=== PATIENT | female | born 1935 | race African-American/Black ===

== ENCOUNTER 2017-04-22 15:26 | Inpatient (IN) | payer MEDICARE, MEDICAID ==
[~2017-04-22] VITALS: Ht 152.4 cm; Wt 61.7 kg
[~2017-04-22 15:26] MED LIST: ALLOPURINOL300 M1 ORAL; ATORVASTATIN CA40 MG ORAL; COZAAR50 MG ORAL; HYZAAR 100-12.1 EACH ORAL; METOPROLOL SUCC50 MG ORAL; NORVASC5 MG ORAL
--- NOTE | 2017-04-22 16:31 | Diagnostic Imaging Report ---
Indication: Headache Technique: Contiguous 5 mm thick transaxial imaging of the head obtained in a Siemens Sensation [address] scanner. Soft tissue and bone windows generated. Automatic Exposure Control was utilized. Total Dose length Product (DLP): 1354.[address] Dose Index Volume (CTDIvol): 70.38 mGy Comparison: none Findings: There is mild prominence of the ventricles, basal cisterns, and cerebral sulci consistent with atrophy. Mild, nonspecific, white matter hypoattenuation is noted throughout the brain consistent with chronic small vessel disease. There is no midline shift, edema, acute hemorrhage, mass effect, or abnormal extra-axial fluid collections. Bones and extra osseous soft tissues are unremarkable. Impression: No acute intracranial bleed, mass effect or edema. Mild atrophy of the brain. Nonspecific white matter hypoattenuation probably due to chronic small vessel disease. The CT scanner at [facility] is accredited by the [employer] and the scans are performed using dose optimization techniques as appropriate to a performed exam including Automatic Exposure control.
[2017-04-22 16:55] LABS: BASOPHILS % (AUTO) 1.8 % (0.0-2.0); EOSINOPHILS % (AUTO) 3.6 % (0.0-3.0); HEMATOCRIT 34.3 % (37.0-47.0); HEMOGLOBIN 11.4 G/DL (12.0-16.0); LYMPHOCYTES % (AUTO) 41.2 % (20.0-45.0); MEAN CORPUSCULAR VOLUME 90 FL (80-99); MONOCYTES % (AUTO) 4.8 % (1.0-10.0); NEUTROPHILS % (AUTO) 48.5 % (45.0-75.0); PLATELET COUNT 215 K/UL (150-450); RED BLOOD COUNT 3.81 M/UL (4.20-5.40); RED CELL DISTRIBUTION WIDTH 13.9 % (11.6-14.8); WHITE BLOOD COUNT 5.1 K/UL (4.8-10.8)
--- NOTE | 2017-04-22 16:58 | Diagnostic Imaging Report ---
Indication: Dyspnea Comparison: 11/13/2015 A single view chest radiograph was obtained. Findings: No definite infiltrate or pulmonary vascular congestion identified. A pacemaker is noted on the left. Sternotomy noted. There is no change The heart is enlarged. The aorta is mildly enlarged consistent with atherosclerotic vascular disease. The bones are osteopenic. Impression: No acute disease .
[2017-04-22 16:59] VITALS: BP 160/58
[2017-04-22 17:11] LABS: ANION GAP 10 mmol/L (5-15); BLOOD UREA NITROGEN 14 mg/dL (7-18); CARBON DIOXIDE 26 MMOL/L (21-32); CHLORIDE 105 MMOL/L (98-107); CREATININE 1.4 MG/DL (0.55-1.30); POTASSIUM 3.8 MMOL/L (3.5-5.1); SODIUM 141 MMOL/L (136-145)
[2017-04-22 17:25] LABS: ALANINE AMINOTRANSFERASE 12 U/L (12-78); ALBUMIN 3.8 G/DL (3.4-5.0); ALBUMIN/GLOBULIN RATIO 0.9 (1.0-2.7); ALKALINE PHOSPHATASE 117 U/L (46-116); ASPARTATE AMINO TRANSFERASE 16 U/L (15-37); BILIRUBIN,TOTAL 0.3 MG/DL (0.2-1.0); CKMB 1.1 NG/ML (0.0-3.6); CREATINE KINASE 96 U/L (26-308)
[2017-04-22 20:00] VITALS: BP 118/64
[2017-04-22] MEDS: Nitroglycerin 2% oint pkt TOPIC SCH (22:02)
[2017-04-22] MEDS: Aspirin Baby 81mg ORAL SCH (22:09)
[2017-04-22] MEDS: Atorvastatin 20mg tab ORAL SCH (22:09)
[2017-04-22] MEDS: Heparin 5000 units/ml inj SUBQ SCH (22:11)
--- NOTE | 2017-04-22 22:30 | Emergency Room Report ---
History of Present Illness General Chief Complaint: Hypertension Source: Patient, Medical Record Present Illness HPI This is a 82-year-old female who presented after increased hypertension and generalized weakness. Patient reported having increased headache as well as a change in her speech. Patient been poorly compliant with her medications for blood pressure patient reports having gradual onset of headache. She denies any visual changes. She denied any numbness or weakness to her extremities. Patient had not been vomiting or having any flank pain. Allergies: Coded Allergies: No Known Allergies (Verified Allergy, Unknown, 04/26/09) Patient History Past Medical History: see triage record Reviewed Nursing Documentation: PMH: Agreed, PSxH: Agreed Nursing Documentation-PMH Hx Cardiac Problems: Yes - CABG; Stents; High Cholesterol Hx Hypertension: Yes Hx Pacemaker: Yes - Left upper chest Hx Cancer: No Hx Gastrointestinal Problems: No Hx Neurological Problems: No Review of Systems All Other Systems: negative except mentioned in HPI Physical Exam Vital Signs Date Time Temp Pulse Resp B/P (MAP) Pulse Ox O2 Delivery O2 Flow Rate FiO2 04/22/17 15:49 97.9 71 24 172/106 96 Room Air 97.9 Sp02 EP Interpretation: reviewed, normal General Appearance: normal inspection, well appearing, no apparent distress, alert, GCS 15 Head: atraumatic ENT: normal ENT inspection, hearing grossly normal, normal voice Neck: normal inspection, full range of motion, supple, no bony tend Respiratory: normal inspection, lungs clear, normal breath sounds, no respiratory distress, no retraction, no wheezing Cardiovascular #1: regular rate, rhythm, no edema Gastrointestinal: normal inspection, normal bowel sounds, non tender, soft, no guarding, no hernia Genitourinary: no CVA tenderness Musculoskeletal: normal inspection, back normal, normal range of motion Neurologic: normal inspection, alert, responsive, speech normal Psychiatric: normal inspection, judgement/insight normal, mood/affect normal Skin: normal inspection, normal color, no rash Medical Decision Making Diagnostic Impression: Primary Impression: Hypertensive crisis, unspecified ER Course Patient presented for generalized weakness and uncontrolled hypertension. Differential diagnosis included but was not limited to CVA, hypertensive crisis , alcohol intoxication, among others. Patient was given clonidine with improvement in BP. She was noted to have some difficulty with speech. Ct of head showed no acute CVA or hemorrhage.Dr. Jey Rivera was contacted for inpatient managment due to primary care physician. Labs Test 04/22/17 16:37 2/13/18 06:40 Prothrombin Time 10.2 SEC (9.30-11.50) Prothromb Time International Ratio 1.0 (0.9-1.1) Activated Partial Thromboplast Time 29 SEC (23-33) Total Creatine Kinase 96 U/L (26-308) Creatine Kinase MB 1.1 NG/ML (0.0-3.6) Creatine Kinase MB Relative Index 1.1 Pro-B-Type Natriuretic Peptide 899 pg/mL (0-125) White Blood Count 4.7 K/UL (4.8-10.8) Red Blood Count 3.48 M/UL (4.20-5.40) Hemoglobin 10.1 G/DL (12.0-16.0) Hematocrit 31.4 % (37.0-47.0) Mean Corpuscular Volume 90 FL (80-99) Mean Corpuscular Hemoglobin 29.1 PG (27.0-31.0) Mean Corpuscular Hemoglobin Concent 32.3 G/DL (32.0-36.0) Red Cell Distribution Width 14.4 % (11.6-14.8) Platelet Count 182 K/UL (150-450) Mean Platelet Volume 8.4 FL (6.5-10.1) Neutrophils (%) (Auto) % (45.0-75.0) Lymphocytes (%) (Auto) % (20.0-45.0) Monocytes (%) (Auto) % (1.0-10.0) Eosinophils (%) (Auto) % (0.0-3.0) Basophils (%) (Auto) % (0.0-2.0) Differential Total Cells Counted 100 Neutrophils % (Manual) 36 % (45-75) Lymphocytes % (Manual) 57 % (20-45) Monocytes % (Manual) 3 % (1-10) Eosinophils % (Manual) 3 % (0-3) Basophils % (Manual) 1 % (0-2) Band Neutrophils 0 % (0-8) Platelet Estimate Adequate Platelet Morphology Normal Red Blood Cell Morphology Normal Sodium Level 142 MMOL/L (136-145) Potassium Level 4.5 MMOL/L (3.5-5.1) Chloride Level 109 MMOL/L (98-107) Carbon Dioxide Level 26 MMOL/L (21-32) Anion Gap 7 mmol/L (5-15) Blood Urea Nitrogen 15 mg/dL (7-18) Creatinine 1.3 MG/DL (0.55-1.30) Estimat Glomerular Filtration Rate mL/min (>60) Glucose Level 85 MG/DL (74-106) Calcium Level 9.6 MG/DL (8.5-10.1) Magnesium Level 1.8 MG/DL (1.8-2.4) Total Bilirubin 0.3 MG/DL (0.2-1.0) Aspartate Amino Transf (AST/SGOT) 13 U/L (15-37) Alanine Aminotransferase (ALT/SGPT) 11 U/L (12-78) Alkaline Phosphatase 88 U/L (46-116) Troponin I 0.000 ng/mL (0.000-0.056) Total Protein 7.1 G/DL (6.4-8.2) Albumin 3.2 G/DL (3.4-5.0) Globulin 3.9 g/dL Albumin/Globulin Ratio 0.8 (1.0-2.7) Triglycerides Level 96 MG/DL (30-150) Cholesterol Level 191 MG/DL (< 200) LDL Cholesterol 112 mg/dL (<100) HDL Cholesterol 58 MG/DL (40-60) Cholesterol/HDL Ratio 3.3 (3.3-4.4) Thyroid Stimulating Hormone (TSH) 4.977 uiU/mL (0.358-3.740) EKG Diagnostic Results Rate: normal Rhythm: NSR ST Segments: no acute changes Last Vital Signs Date Time Temp Pulse Resp B/P (MAP) Pulse Ox O2 Delivery O2 Flow Rate FiO2 04/22/17 22:02 118/64 04/22/17 20:00 97.6 60 18 96 Room Air Status: unchanged Disposition: ADMITTED INPATIENT Condition: Serious Referrals: JEY RIVERA (PCP) Christopher Siddiqui Apr 22, 2017 22:30
[2017-04-22] MEDS: NS w/KCl 20mEq 1,000 ML IV SCH (22:38)
[2017-04-23] VITALS: BP 116/73
--- NOTE | 2017-04-23 03:00 | History and Physical Report ---
DATE OF ADMISSION: 04/22/2017 CONSULTING PHYSICIAN: Jey Rivera M.D. REQUESTING PHYSICIAN: Mayur Gutierrez M.D. REASON FOR EVALUATION: Malignant hypertension in the setting of possible acute cerebrovascular accident. HISTORY OF PRESENT ILLNESS: This is an 82-year-old female with ischemic cardiomyopathy, permanent pacemaker, and malignant range hypertension. She is status post coronary artery bypass graft surgery and prior stents and has a permanent pacemaker. She has been my patient for several years, but has periods of noncompliance with medical followup. She came into the emergency room today with generalized weakness and headache with some changes in her speech. She states that she has been poorly compliant with medications for her blood pressure and she was noted in the emergency room to have a malignant blood pressure of 172/106. The patient denies any visual disturbance, weakness, or numbness, but has had gradual onset of a severe headache and some difficulty with her speech. PAST MEDICAL HISTORY: Coronary artery disease, CABG, coronary stents, hyperlipidemia, permanent pacemaker, hypertension, paroxysmal atrial ectopy, history of gastric ulcer and gastrointestinal bleeding, hyperuricemia, history of gout, conduction system disease with pacemaker, and COPD. ALLERGIES: None. SOCIAL HISTORY: Positive for smoking. No alcohol or substance abuse. FAMILY HISTORY: Noncontributory. REVIEW OF SYSTEMS: No fevers. No recent upper respiratory infection. Note her most recent echocardiogram has revealed normal ejection fraction with concentric hypertrophy and diastolic dysfunction. There is no prior history of stroke. She has been on anti-lipid drugs. Antiplatelet therapy has been held at times when she had this GI bleeding, but was resumed in the recent past. There is no recent change in bowel habits. No history of dysuria or frequency. No history of diabetes mellitus. The patient's permanent pacemaker was interrogated within the last six months and noted to be functioning appropriately with adequate battery life. PHYSICAL EXAMINATION: VITAL SIGNS: As noted above. HEENT: Conjunctivae pink. Sclerae are anicteric. Arcus senilis. Oropharynx clear. Mucous membranes moist. NECK: Supple. No bruits. Jugular venous pressure normal. LUNGS: Clear. Pacemaker pocket left chest wall. BREASTS: Without masses. CARDIAC: Regular rhythm and rate. Normal S1 and S2 with a fourth heart sound. ABDOMEN: Soft. EXTREMITIES: No edema. NEUROLOGIC: Speech is somewhat slurred, but coherent. No edema. DIAGNOSTIC DATA: EKG with paced rhythm. IMPRESSION: 1. Hypertensive urgency. 2. Transient ischemic attack and possible acute cerebrovascular accident. 3. Ischemic and hypertensive cardiomyopathy. 4. History of hyperlipidemia. 5. Permanent pacemaker. PLAN: 1. Cardiac monitoring. 2. Antiplatelet therapy. 3. Stepwise titration of antihypertensives. 4. Avoid precipitous drop in blood pressure in the setting of acute cerebrovascular insult. 5. Continue anti-lipid drugs. 6. Observe for bleeding complications with anti-platelet therapy in view of prior history of GI bleed. 7. Consider CT scan with contrast, cannot do MRI in this setting. Jey Rivera M.D. DR: AMOS JOB#: [id number] CC: BRANDY
[2017-04-23 04:00] VITALS: BP 150/75
[2017-04-23] MEDS: Nitroglycerin 2% oint pkt TOPIC SCH ×3 (06:07→18:13)
[2017-04-23 07:18] LABS: HEMATOCRIT 31.4 % (37.0-47.0); HEMOGLOBIN 10.1 G/DL (12.0-16.0); MEAN CORPUSCULAR VOLUME 90 FL (80-99); PLATELET COUNT 182 K/UL (150-450); RED BLOOD COUNT 3.48 M/UL (4.20-5.40); RED CELL DISTRIBUTION WIDTH 14.4 % (11.6-14.8); WHITE BLOOD COUNT 4.7 K/UL (4.8-10.8)
[2017-04-23 07:43] LABS: ALANINE AMINOTRANSFERASE 11 U/L (12-78); ALBUMIN 3.2 G/DL (3.4-5.0); ALBUMIN/GLOBULIN RATIO 0.8 (1.0-2.7); ALKALINE PHOSPHATASE 88 U/L (46-116); ANION GAP 7 mmol/L (5-15); ASPARTATE AMINO TRANSFERASE 13 U/L (15-37); BILIRUBIN,TOTAL 0.3 MG/DL (0.2-1.0); BLOOD UREA NITROGEN 15 mg/dL (7-18); CALCIUM 9.6 MG/DL (8.5-10.1); CARBON DIOXIDE 26 MMOL/L (21-32); CHLORIDE 109 MMOL/L (98-107); CHOLESTEROL 191 MG/DL (< 200); CREATININE 1.3 MG/DL (0.55-1.30); HDL CHOLESTEROL 58 MG/DL (40-60); POTASSIUM 4.5 MMOL/L (3.5-5.1); SODIUM 142 MMOL/L (136-145); TRIGLYCERIDES 96 MG/DL (30-150)
[2017-04-23 08:00] VITALS: BP 137/75
[2017-04-23] MEDS: Metoprolol Succinate XL 50mg tab ORAL SCH (09:07)
[2017-04-23] MEDS: Aspirin Baby 81mg ORAL SCH (09:07)
[2017-04-23] MEDS: Losartan 50mg tab ORAL SCH (09:08)
[2017-04-23] MEDS: Heparin 5000 units/ml inj SUBQ SCH ×2 (09:09→20:48)
[2017-04-23 12:00] VITALS: BP 127/74
[2017-04-23] MEDS: NS w/KCl 20mEq 1,000 ML IV SCH ×2 (12:16→22:17)
[2017-04-23 15:53] VITALS: BP 130/62
--- NOTE | 2017-04-23 16:58 | Cardiology Report ---
APPROVED REPORT EKG Measurement Heart [id number] HI [id number] Left ventricular hypertrophy with repolarization abnormality atril pacing ventricular sensing Abnormal ECG
[2017-04-23 20:00] VITALS: BP 157/70
[2017-04-23] MEDS: Atorvastatin 20mg tab ORAL SCH (20:47)
[2017-04-24] VITALS (8 sets, daily range): BP systolic 137–190; BP diastolic 55–82
[2017-04-24] MEDS: HydrALAZINE 25mg tab ORAL PRN ×2 (03:37→20:44)
--- NOTE | 2017-04-24 05:45 | Progress Note ---
DATE: 04/23/2017 CARDIOLOGY PROGRESS NOTE SUBJECTIVE: The patient has some difficulty with word finding. She denies any weakness. She is concerned about her blood pressure. She had a headache with the nitro paste. OBJECTIVE: VITAL SIGNS: Blood pressure 130/62 to 167/70, heart rate 60, respiratory rate 20, afebrile, and oxygen saturation 95% on room air. HEENT: Oropharynx clear. NECK: Supple. LUNGS: Clear. CARDIAC: Regular. ABDOMEN: Soft. EXTREMITIES: No edema. ASSESSMENT: 1. Malignant hypertension, improved. 2. Coronary artery disease with prior CABG. 3. Stable angina. 4. Nitrate headache. 5. Possible acute cerebrovascular accident. 6. Mild hypothyroidism with elevated TSH. 7. History of GI bleeding. 8. Permanent pacemaker. PLAN: 1. Continue anti-platelet therapy. 2. Anti-lipid therapy. 3. Titrate antihypertensive therapy. 4. PT, OT, and ST evaluation. 5. Thyroid supplement. 6. Repeat CT scan of the brain with contrast, cannot do MRI due to pacemaker. Jey Rivera M.D. DR: MARLENE JOB#: [id number] CC:
--- NOTE | 2017-04-24 07:58 | General Progress Note ---
Assessment/Plan Problem List: (1) Hyperkalemia ICD Codes: E87.5 - Hyperkalemia SNOMED: 06329309 (2) Hyponatremia ICD Codes: E87.1 - Hypo-osmolality and hyponatremia SNOMED: 26183363 (3) Hypertension ICD Codes: I10 - Essential (primary) hypertension SNOMED: 50622297 Status: stable, progressing Assessment/Plan titrate bp rx antiplt rx pt/ot Subjective ROS Limited/Unobtainable: No Constitutional: Reports: malaise, weakness HEENT: Reports: no symptoms Cardiovascular: Reports: no symptoms Respiratory: Reports: no symptoms Gastrointestinal/Abdominal: Reports: no symptoms Genitourinary: Reports: no symptoms Neurologic/Psychiatric: Reports: no symptoms Endocrine: Reports: no symptoms Hematologic/Lymphatic: Reports: no symptoms Allergies: Coded Allergies: No Known Allergies (Verified Allergy, Unknown, 04/26/09) All Systems: reviewed and negative except above Subjective no events. w/o complaints. BP still running high. "I feel fine." Objective Last 24 Hour Vital Signs Date Time Temp Pulse Resp B/P (MAP) Pulse Ox O2 Delivery O2 Flow Rate FiO2 04/24/17 04:45 60 161/70 04/24/17 04:00 97.0 60 20 180/82 100 Room Air 04/24/17 04:00 60 04/24/17 03:37 180/82 04/24/17 00:00 97.7 61 20 153/81 96 Room Air 04/24/17 00:00 60 04/23/17 20:00 98.1 61 20 157/70 95 Room Air 04/23/17 20:00 65 04/23/17 18:13 130/62 04/23/17 16:00 120 04/23/17 15:53 97.9 61 18 130/62 98 Room Air 04/23/17 12:16 127/74 04/23/17 12:00 98.7 59 18 127/74 97 Room Air 04/23/17 12:00 77 04/23/17 12:00 120 04/23/17 09:08 137/75 04/23/17 09:07 60 137/68 04/23/17 09:07 60 137/75 04/23/17 08:00 120 04/23/17 08:00 97.8 60 18 137/75 97 Room Air Intake and Output 04/23/17 04/24/17 19:00 07:00 Intake Total 75 ml 879 ml Balance 75 ml 879 ml IV Total 75 ml 879 ml # Voids 3 2 # Bowel Movements 1 Height (Feet): 5 Height (Inches): 0.00 Weight (Pounds): 136 General Appearance: WD/WN, alert Neck: supple Cardiovascular: regular rhythm Respiratory/Chest: chest wall non-tender, lungs clear, normal breath sounds, no respiratory distress Abdomen: normal bowel sounds, non tender, soft, no organomegaly Edema: no edema noted Arm (L), no edema noted Arm (R), no edema noted Leg (L), no edema noted Leg (R), no edema noted Pedal (L), no edema noted Pedal (R), no edema noted 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
[2017-04-24] MEDS: Metoprolol Succinate XL 50mg tab ORAL SCH (08:17)
[2017-04-24] MEDS: Losartan 50mg tab ORAL SCH (08:17)
[2017-04-24] MEDS: Aspirin Baby 81mg ORAL SCH (08:18)
[2017-04-24] MEDS: Heparin 5000 units/ml inj SUBQ SCH ×2 (08:19→20:49)
[2017-04-24] MEDS: NS w/KCl 20mEq 1,000 ML IV SCH (18:42)
[2017-04-24] MEDS: Atorvastatin 20mg tab ORAL SCH (20:43)
[2017-04-25] VITALS: BP 134/56
[2017-04-25] MEDS: NS w/KCl 20mEq 1,000 ML IV SCH (03:43)
[2017-04-25 04:00] VITALS: BP 126/59
[2017-04-25 08:00] VITALS: BP 145/58
[2017-04-25 09:04] VITALS: BP 145/57
[2017-04-25] MEDS: Losartan 50mg tab ORAL SCH (09:04)
[2017-04-25] MEDS: Metoprolol Succinate XL 50mg tab ORAL SCH (09:04)
[2017-04-25] MEDS: Aspirin Baby 81mg ORAL SCH (09:04)
[2017-04-25] MEDS: Heparin 5000 units/ml inj SUBQ SCH (09:06)
[2017-04-25] MEDS ORDERED: SYNTHROID50 MCG ORAL (10:47)
[2017-04-25] MEDS ORDERED: NORVASC10 MG ORAL (10:47)
[2017-04-25] MEDS ORDERED: COZAAR50 MG ORAL (10:47)
--- NOTE | 2017-04-25 19:47 | Progress Note ---
DATE: 04/25/2017 CARDIOLOGY PROGRESS NOTE SUBJECTIVE: The patient has no weakness. Speech is fluent. Blood pressure parameters improved. No chest pain. Monitor, paced rhythm. OBJECTIVE: VITAL SIGNS: Blood pressure 126/59, pulse 60, and respirations 20. LUNGS: Clear. CARDIAC: Regular. Normal S1, S2 with a fourth heart sound. ABDOMEN: Soft. EXTREMITIES: No edema. IMPRESSION: 1. Transient ischemic attack. 2. Hypertensive heart disease with malignant blood pressure, resolved. 3. Coronary artery disease with history of coronary artery bypass graft and stable angina. 4. Iron deficiency anemia secondary to prior gastrointestinal bleed. 5. Permanent pacemaker. PLAN: 1. Stable for discharge on current cardiovascular regimen. 2. Outpatient pacemaker interrogation scheduled. 3. Compliance stressed. 4. Diet stressed. 5. Fall precautions. Jey Rivera M.D. DR: GAVIOTA JOB#: [id number] CC:
--- NOTE | 2017-04-25 20:46 | Progress Note ---
DATE: 04/24/2017 CARDIOLOGY PROGRESS NOTE SUBJECTIVE: The patient is without distress. No chest pain. No shortness of breath. She remains concerned about her elevated blood pressure. OBJECTIVE: VITAL SIGNS: Blood pressure 180/82, pulse 60, and respirations 20, paced rhythm. NECK: Supple. LUNGS: Clear. CARDIAC: Regular rhythm and rate. Normal S1 and S2 with a fourth heart sound. ABDOMEN: Soft. EXTREMITIES: No edema. IMPRESSION: 1. Malignant hypertension. 2. Probable transient ischemic attack. 3. Electrolyte disturbances, improved. 4. Ischemic cardiomyopathy. 5. Stable angina. PLAN: 1. Continue anti-platelet and anti-lipid drugs. 2. We will up-titrate antihypertensive regimen further. 3. Monitor for orthostatics. 4. Neuro checks as needed. Jey Rivera M.D. DR: Logan JOB#: [id number] CC:
--- NOTE | 2017-04-26 03:00 | Discharge Summary ---
DATE OF ADMISSION: 04/22/2017 DATE OF DISCHARGE: 04/25/2017 ADMISSION DIAGNOSIS: Uncontrolled hypertension. DISCHARGE DIAGNOSIS: Uncontrolled hypertension. HOSPITAL COURSE: The patient is a pleasant female, who was admitted with complaints of uncontrolled hypertension. She had mild generalized weakness. There is also concern about a stroke. She was admitted to a monitored bed. She was ruled out for MS with serial enzymes and EKG. She had a CAT scan of the head that showed no acute stroke. 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 On discharge, her blood pressure was well controlled. The patient will be discharged home. Home health has been ordered. DISCHARGE MEDICATIONS: Please see discharge medication list for discharge medications. DIET: Cardiac diet. ACTIVITIES: Ad-merlin. FOLLOWUP: The patient to follow up in one to two weeks in the office. Mayur Gutierrez M.D. DR: DALTON JOB#: [id number] CC:
--- NOTE | 2017-05-01 22:06 | Diagnostic Imaging Report ---
APPROVED REPORT CPT Code: 40931 Vascular Symptoms CVA/TIA: Comments: HTN Doppler Spectral Velocity Analysis RightLeft arteries. The Doppler spectral flow analysis indicates the degree of stenosis is mild (30-50%) in the common carotid artery, mild to moderate (50-60%) in the internal carotid artery, and the external carotid artery. VERTEBRAL - The vertebral artery is patent, without evidence of stenosis or steal. arteries. The Doppler spectral flow analysis indicates the degree of stenosis is mild (30-50%) in the common carotid artery, mild to moderate (50-60%) in the internal carotid artery, and the external carotid artery. VERTEBRAL - The vertebral artery is patent, without evidence of stenosis or steal.
== END 2017-04-25 12:01 | disposition home or self-care (01) | DRG 305 ==
LOC: EMR 16:20 → 2E 16:51 → EDBEDREQ 17:04 → 2E 21:20
DX: I16.9 Hypertensive crisis, unspecified (principal); E87.1 Hypo-osmolality and hyponatremia; E87.5 Hyperkalemia; I11.9 Hypertensive heart disease without heart failure; G45.9 Transient cerebral ischemic attack, unspecified; J44.9 Chronic obstructive pulmonary disease, unspecified; Z95.1 Presence of aortocoronary bypass graft; I25.5 Ischemic cardiomyopathy; Z95.0 Presence of cardiac pacemaker; E03.9 Hypothyroidism, unspecified; Z95.5 Presence of coronary angioplasty implant and graft; I25.118 Atherosclerotic heart disease of native coronary artery with other forms of angina pectoris; I49.1 Atrial premature depolarization; D50.9 Iron deficiency anemia, unspecified
CPT/HCPCS: 36415; 70450; 71045; 80053; 80061; 82550; 82553; 83735; 83880; 84443; 84484; 85007; 85025; 85610; 85730; 93005; 93880; 99285